=== PATIENT | female | born 1955 | race Caucasian/White ===

== ENCOUNTER 2020-08-22 16:07 | Emergency (ER) | payer MEDICAID ==
[2020-08-22 16:12] VITALS: BP 128/80
[2020-08-22] MEDS ORDERED: SULFAMETH/TRIMETH DS 800/160 MG TABLET PO STA (16:36)
--- NOTE | 2020-08-22 16:40 | ED Physician Documentation ---
PD HPI SKIN - Stated complaint Stated Complaint: RT THUMB LEAKING - Chief complaint Chief Complaint: Wound - History obtained from History obtained from: Patient - Additional information Additional information: Pt comes to ED with CC of swelling of R thumb with purulent drainage from under nail. She states that last week, she injured her thumb and was seen at a [facility] ED. She was diagnosed with a contusion and subungual hematoma. She states she was counseled regarding symptomatic management and discharged. Pt states that she later "found out" (unclear source) that "they should have put me on antibiotics for this injury to prevent infection." She began to notice increased swelling of the thumb a few days ago, and thought it looked like there was pus beneath her thumb nail. She states that today, she was able to squeeze some pus out from under the top of the nail. She has not done any hot soaks at home. 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 No fevers or chills. No other injuries. No other complaints at this time. Review of Systems Ten Systems: 10 systems reviewed and negative Constitutional: reports: Reviewed and negative Eyes: reports: Reviewed and negative Ears: reports: Reviewed and negative Nose: reports: Reviewed and negative Throat: reports: Reviewed and negative Cardiac: reports: Reviewed and negative Respiratory: reports: Reviewed and negative GI: reports: Reviewed and negative : reports: Reviewed and negative Skin: reports: Other (swelling R thumb) Musculoskeletal: reports: Extremity swelling Neurologic: reports: Reviewed and negative Psychiatric: reports: Reviewed and negative Endocrine: reports: Reviewed and negative Immunocompromised: reports: Reviewed and negative PD PAST MEDICAL HISTORY - Past Medical History Cardiovascular: None Respiratory: None - Past Surgical History Past Surgical History: No - Present Medications Home Medications: Ambulatory Orders Medication Instructions Recorded Confirmed Sulfamethox/Trimeth 800/160 1 each PO BID #14 tab 08/22/20 [Bactrim Ds 800/160] - Allergies Allergies/Adverse Reactions: Allergies Allergy/AdvReac Type Severity Reaction Status Date / Time No Known Drug Allergies Allergy Verified 08/22/20 16:12 - Social History Does the pt smoke?: No Smoking Status: Never smoker Does the pt drink ETOH?: No Does the pt have substance abuse?: No - Immunizations Immunizations: TDAP >10years/unknown - POLST Patient has POLST: No PD ED PE NORMAL - Vitals Vital signs reviewed: Yes - General General: Alert and oriented X 3, No acute distress, Well developed/nourished - HEENT HEENT: Atraumatic, PERRL, EOMI, Moist mucous membranes - Neck Neck: Supple, no meningeal sign - Cardiac Cardiac: Strong equal pulses - Respiratory Respiratory: No respiratory distress - Derm Derm: Warm and dry, Other (Subungual hematoma with small subungual purulent collection noted to involve slightly less than 50% of radial aspect of R thumbnail. Base and germinal matrix area not involved. Minimal erythema. No streaking proximally. No induration or fluctuance of soft tissue of distal thumb. No edema of hand. ) - Extremities Extremities: No deformity, Other (Moderate soft tissue edema distal R thumb IP joint. No joint edema. Purulent drainage easily expressible from beneath nail with retraction of soft tissue at thumb tip adjacent to distal nail.) - Neuro Neuro: Alert and oriented X 3 - Psych Psych: Normal mood, Normal affect Results - Vitals Vitals: Oxygen O2 Source Room air - Labs Labs: Microbiology 08/22/20 16:36 Wound Culture - Preliminary Abscess PD MEDICAL DECISION MAKING - ED course Complexity details: considered differential, d/w patient ED course: Pt appeared to have a small, existing subungual hematoma which had developed a small, associated subungual purulent collection. No evidence of paronychium or felon was found. Some soft tissue swelling of distal thumb was noted, but tissue was soft and pliable, and without induration or fluctuance. Subungual pus collection drained easily with manual retraction of soft tissue away from the nail end, which was already from the nail bed involved in the injured area. Purulent collection was expressed to completely, and pt was given a dose of Bactrim in the ED. I have discussed with her that symptomatic management was appropriate for her injury; however, as she has developed infection, she should be started on abx. I have discussed with her that hot soaks several times daily would be beneficial. She should manually retract the thumb tip tissue to express any purulent material that collects. There is no r ole for I&D at this time. Much of her nail is still intact, including at the germinal matrix, most importantly, and since the collection drains easily, I do not feel the nail should be removed at this time. The pt has many questions, which I have answered. We have discussed that the detached portion of the nail will eventually grow out, and that it may need to be cut shorter if it is catching on things. However, given that it is still attached at the lateral edges, I would not advocate for doing that now. The pt is most concerned with getting back to playing her harp, and I have recommended she wait until the soft tissue of her distal thumb/pad is feeling better and swelling has resolved, as this is the part she uses to pluck the strings. We have discussed the usual indications for return. Departure - Departure Disposition: Home, Self Care Clinical Impression: Abscess, Subungual abscess Condition: Stable Instructions: ED Staph Infec Abx Tx Only Prescriptions: Sulfamethox/Trimeth 800/160 [Bactrim Ds 800/160] 1 each PO BID #14 tab Comments: Some pus has collected beneath your thumbnail, but this has drained easily with separation of the thumb tip from the nail. You have been started on oral antibiotics to help get rid of the infection in your thumb tip, and it is highly recommended that you also perform hot soaks of the thumb, several times daily, for 20 to 30 minutes at a time. You should use the hottest water you can stand without burning yourself. You may add Epsom salt if you wish. If you want to add a couple drops of tea tree oil, this is fine, but please do not apply any essential oils directly to the wound. Your next dose of antibiotics will be due tomorrow morning. Please take the antibiotics every day, as directed, until gone. Discharge Date/Time: 08/22/20 16:56
== END 2020-08-22 16:56 | disposition home or self-care (01) ==
LOC: ED 16:07
DX: L02.511 Cutaneous abscess of right hand (principal)
CPT/HCPCS: 87070; 87077; 87205; 99283; 99284; A9270

== ENCOUNTER 2022-07-02 07:00 | Outpatient (CLI) | payer MEDICARE, OTHER | END 2022-07-02 23:59 | disposition home or self-care (01) | LOC: LAB.S 07:00 | PROVIDERS: ATTEND Physician Assistant Medical | DX: R53.83 Other fatigue (principal); L98.8 Other specified disorders of the skin and subcutaneous tissue | CPT/HCPCS: 87252 ==

== ENCOUNTER 2023-05-30 10:21 | Outpatient (CLI) | payer MEDICARE, OTHER ==
[2023-05-30 10:51] LABS: CHOL/HDL RATIO 4.7 (<4.4); CHOLESTEROL 196 mg/dL; CRP HIGH SENSITIVITY 0.32 mg/L; HDL CHOLESTEROL 42 mg/dL; LDL CHOLESTEROL,CALCULATED 81 mg/dL; LDL/HDL RATIO 1.9 (<4.4); TRIGLYCERIDES 364 mg/dL (48-352); VLDL CHOLESTEROL 73 mg/dL
== END 2023-05-30 10:22 | disposition home or self-care (01) ==
LOC: LAB 10:21
PROVIDERS: ATTEND Internal Medicine
DX: E78.5 Hyperlipidemia, unspecified (principal)
CPT/HCPCS: 36415; 80061; 82172; 83721; 86141

== ENCOUNTER 2023-06-21 07:00 | Outpatient (CLI) | payer MEDICARE, OTHER ==
[2023-06-21 21:19] LABS: INFLUENZA A- RESP PCR PANEL NOT DETECTED; INFLUENZA B - RESP PCR PANEL NOT DETECTED; RSV- RESP PCR PANEL NOT DETECTED; SARS-CoV-2 -RESP PCR PANEL NOT DETECTED
== END 2023-06-21 23:59 | disposition home or self-care (01) ==
LOC: LAB.S 07:00
PROVIDERS: ATTEND Registered Nurse
DX: J02.9 Acute pharyngitis, unspecified (principal)
CPT/HCPCS: 87070; 87637